=== PATIENT | female | born 1995 | race African-American/Black ===

== ENCOUNTER 2023-09-12 08:00 | Outpatient (CLI) | payer OTHER ==
[2023-09-12 17:25] LABS: BILIRUBIN,URINE NEGATIVE (NEGATIVE); GLUCOSE, URINE (UA) NEGATIVE (NEGATIVE); KETONES,URINE (UA) NEGATIVE (NEGATIVE); LEUKOCYTE ESTERASE, URINE NEGATIVE (NEGATIVE); NITRITE,URINE NEGATIVE (NEGATIVE); OCCULT BLOOD,URINE NEGATIVE (NEGATIVE); PROTEIN,URINE NEGATIVE (NEGATIVE); UROBILINOGEN,URINE 0.2 (NORMAL) E.U./dL (NORMAL)
[2023-09-12 17:37] LABS: AMORPHOUS SEDIMENT,UR Few /LPF; BACTERIA,URINE None Seen /HPF (None Seen); CLARITY,URINE HAZY (CLEAR); RBC,URINE None Seen /HPF (0-5); SQUAMOUS EPITHELIAL CELL,UR RARE Squamous (<= Few); WBC,URINE 0-3 /HPF (0-5)
== END 2023-09-12 23:59 | disposition home or self-care (01) ==
LOC: LAB.WC 08:00
PROVIDERS: ATTEND Obstetrics & Gynecology
DX: Z34.90 Encounter for supervision of normal pregnancy, unspecified, unspecified trimester (principal)
CPT/HCPCS: 81001; 87086

== ENCOUNTER 2023-09-21 11:17 | Outpatient (CLI) | payer OTHER ==
[2023-09-21 12:24] LABS: BASOPHILS % (AUTO) 0.5 %; EOSINOPHILS # (AUTO) 0.1 10^3/uL (0.0-0.7); HCT - HEMATOCRIT 38.4 % (37.0-47.0); HGB - HEMOGLOBIN 11.6 g/dL (12.0-16.0); LYMPHOCYTES # (AUTO) 1.4 10^3/uL (1.5-3.5); LYMPHOCYTES % (AUTO) 22.7 %; MEAN CORPUSCULAR HEMOGLOBIN 21.4 pg (27.0-31.0); MEAN CORPUSCULAR HGB CONC 30.2 g/dL (32.0-36.0); MEAN CORPUSCULAR VOLUME 70.8 fL (81.0-99.0); MEAN PLATELET VOLUME 11.3 fL (7.9-10.8); MONOCYTES # (AUTO) 0.4 10^3/uL (0.0-1.0); MONOCYTES % (AUTO) 6.7 %; NEUTROPHILS # (AUTO) 4.3 10^3/uL (1.5-6.6); NEUTROPHILS % (AUTO) 68.9 %; PLT - PLATELET COUNT 163 10^3/uL (130-450); RED BLOOD COUNT 5.42 10^6/uL (4.20-5.40); RED CELL DISTRIBUTION WIDTH 15.2 % (12.0-15.0); WHITE BLOOD COUNT 6.2 x10^3/uL (4.8-10.8)
[2023-09-21 13:05] LABS: THYROID STIMULATING HORMONE 1.15 uIU/mL (0.34-5.60)
[2023-09-21 15:09] LABS: ESTIMATED AVERAGE GLUCOSE 100 mg/dL (70-100); HEMOGLOBIN A1c% 5.1 % (4.27-6.07)
--- NOTE | 2023-09-21 17:27 | Ultrasound Report ---
PROCEDURE: OB 1st Trimester w/TV INDICATIONS: POSITIVE TEST OUTSIDE/PRIOR DATING DATA: Last menstrual period (LMP): 07/05/2023. LMP-based estimated date of delivery (NANCY): 05-02. First dating scan (date and location): 09/21/2023. Estimated date of delivery (NANCY) from first dating scan: 05/02/2024. TECHNIQUE: Real-time scanning was performed of the fetus and maternal pelvic organs, with image documentation. Endovaginal scanning was also performed to better visualize the fetus and maternal ovaries. COMPARISON: None. FINDINGS: Intrauterine gestational sac present. Embryo: [place]-rump length measures 1.6 cm corresponding to 8 weeks 0 days Heart rate: 176 bpm. Other: No perigestational fluid collection. Measurement variability in dating: +/- 4 weeks by LMP, +/- 7 days by mean sac diameter (use before 6 weeks gestation if crown-rump length not able to be measured), +/- 5 days by crown-rump length (6-12 weeks gestation). Maternal organs: Ovaries demonstrate a left corpus luteal cyst. IMPRESSION: Single live intrauterine with gestational age today of 8 weeks 0 days. Recommend follow-up imaging at 20-22 weeks for dates and anatomy. Reviewed by: Marcia Greenwood MD on 09/21/2023 5:26 PM PDT Approved by: Marcia Greenwood MD on 09/21/2023 5:26 PM PDT Station ID: [id number]
[2023-09-22 15:08] LABS: VARICELLA-ZOSTER AB IGG 359 index (Immune >165)
[2023-09-22 23:08] LABS: HBsAG SCREEN Negative (Negative); HIV SCREEN 4TH GENERATION Non Reactive (Non Reactive)
[2023-09-23 06:11] LABS: RPR Non Reactive (Non Reactive)
[2023-09-24 00:07] LABS: HCV AB Non Reactive (Non Reactive)
== END 2023-09-21 11:18 | disposition home or self-care (01) ==
LOC: DI 11:17
PROVIDERS: ATTEND Obstetrics & Gynecology
DX: O99.211 Obesity complicating pregnancy, first trimester (principal); O99.891 Other specified diseases and conditions complicating pregnancy; R71.8 Other abnormality of red blood cells; Z3A.08 8 weeks gestation of pregnancy
CPT/HCPCS: 36415; 82728; 83036; 84443; 85025; 86592; 86762; 86787; 86803; 86850; 86900; 86901; 87340; 87389

== ENCOUNTER 2023-09-22 11:09 | Outpatient (CLI) | payer OTHER | END 2023-09-22 11:10 | disposition home or self-care (01) | LOC: LAB 11:09 | PROVIDERS: ATTEND Obstetrics & Gynecology | DX: O99.891 Other specified diseases and conditions complicating pregnancy (principal); R71.8 Other abnormality of red blood cells; Z3A.00 Weeks of gestation of pregnancy not specified | CPT/HCPCS: 81599 ==

== ENCOUNTER 2023-10-16 08:00 | Outpatient (CLI) | payer OTHER ==
[2023-10-16 20:24] LABS: CHLAMYDIA TRACHOMATIS DNA NEGATIVE (NEGATIVE); NEISSERIA GONORRHOEAE DNA NEGATIVE (NEGATIVE); TRICHOMONAS VAGINALIS DNA NEGATIVE (NEGATIVE)
== END 2023-10-16 23:59 | disposition home or self-care (01) ==
LOC: LAB.WC 08:00
PROVIDERS: ATTEND Obstetrics & Gynecology
DX: Z11.3 Encounter for screening for infections with a predominantly sexual mode of transmission (principal)
CPT/HCPCS: 87491; 87591; 87661

== ENCOUNTER 2023-10-22 15:13 | Outpatient (CLI) | payer OTHER | END 2023-10-22 15:14 | disposition home or self-care (01) | LOC: LAB 15:13 | PROVIDERS: ATTEND Obstetrics & Gynecology | DX: Z36.89 Encounter for other specified antenatal screening (principal) | CPT/HCPCS: 36415 ==

== ENCOUNTER 2023-11-24 11:25 | Outpatient (CLI) | payer OTHER | END 2023-11-24 11:26 | disposition home or self-care (01) | LOC: LAB 11:25 | PROVIDERS: ATTEND Nurse Practitioner | DX: Z36.89 Encounter for other specified antenatal screening (principal) | CPT/HCPCS: 36415; 82105 ==

== ENCOUNTER 2023-12-22 19:48 | Outpatient (CLI) | payer OTHER ==
--- NOTE | 2023-12-23 14:31 | Ultrasound Report ---
PROCEDURE: OB Anatomy Scan INDICATIONS: SUPERVISION IF OUTSIDE/PRIOR DATING DATA: Last menstrual period (LMP): 07/05/2023. LMP-based estimated date of delivery (NANCY): 04/10/2024. First dating scan (date and location): 09/21/2023. Estimated date of delivery (NANCY) from first dating scan: 05/02/2024. The below data below was generated using the ultrasound NANCY of 05/02/2024 TECHNIQUE: Real-time scanning was performed of the fetus, with image documentation and biometric measurements. Endovaginal scanning: Not performed. COMPARISON: None. FINDINGS: General: A single living intrauterine gestation is present. Presentation: Vertex Placenta: Placental position is posterior, without previa. Amniotic fluid index: 11.4 cm, within normal limits for gestational age. heart rate: 137 beats per minute. Maternal cervical canal: 5.4 cm long; normal length is 2.5 cm or more. biometrics: Biparietal diameter: 5.0 cm, 21 weeks 1 day, 48th percentile Head circumference: 19.27 cm, 21 weeks 4 days, 57th percentile Abdominal circumference: 15.3 cm, 20 weeks 4 days, 23rd percentile Femur length: 3.42 cm, 20 weeks 5 days, 28th percentile Estimated gestational age from initial scan: 21 weeks 1 day Composite gestational age from present scan: 21 weeks 1 day Estimated weight and percentile: 372.7 g, 24th percentile Measurement variability in biometric dating: +/- 10 days from 12-20 weeks gestation, +/- 2 weeks from 20-30 weeks gestation, +/- 3 weeks at 30 weeks gestation or later. Anatomic survey: Neuro: Ventricles are normal at less than 10 mm. Cisterna magna is normal at 3-11 mm. Cerebellum i s normal in size and morphology. Nuchal skin fold: Normal at less than 6 mm between 14 and 20 weeks gestational age. Face: Nose and lips, facial profile are normal. Spine: No evidence for spina bifida. Heart: 4-chambered heart is present, with normal ventricular outflow tracts. Diaphragm: Diaphragm is intact. Stomach: Left-sided stomach is present. Kidneys: No hydronephrosis. Normal is less than 5 mm in 2nd trimester, less than 7 mm in 3rd trimester. Cord: 3 vessel cord has orthotopic insertion. Bladder: Normal in size. Extremities: All 4 extremities are visualized. IMPRESSION: Single living intrauterine at 21 weeks 1 day, NANCY of 05/02/2024. Normal anatomy survey. Estimated weight of 372.7 g, 24th percentile. Reviewed by: Dawson Evans MD on 12/23/2023 1:29 PM JUSTIN Approved by: Dawson Evans MD on 12/23/2023 1:29 PM JUSTIN Station ID: [id number]
== END 2023-12-22 19:49 | disposition home or self-care (01) ==
LOC: DI 19:48
PROVIDERS: ATTEND Obstetrics & Gynecology
DX: Z34.92 Encounter for supervision of normal pregnancy, unspecified, second trimester (principal)

== ENCOUNTER 2024-02-25 11:45 | Outpatient (CLI) | payer OTHER ==
[2024-02-25 13:09] LABS: HCT - HEMATOCRIT 36.5 % (37.0-47.0); HGB - HEMOGLOBIN 11.2 g/dL (12.0-16.0); MEAN CORPUSCULAR HEMOGLOBIN 22.2 pg (27.0-31.0); MEAN CORPUSCULAR HGB CONC 30.7 g/dL (32.0-36.0); MEAN CORPUSCULAR VOLUME 72.3 fL (81.0-99.0); MEAN PLATELET VOLUME 11.6 fL (7.9-10.8); RED BLOOD COUNT 5.05 10^6/uL (4.20-5.40); WHITE BLOOD COUNT 7.5 x10^3/uL (4.8-10.8)
[2024-02-25 13:25] LABS: ALBUMIN 3.6 g/dL (3.2-5.5); ALBUMIN/GLOBULIN RATIO 1.2 (1.0-2.2); BILIRUBIN,TOTAL 0.4 mg/dL (0.2-1.0); CREATININE 0.6 mg/dL (0.6-1.3); POTASSIUM 3.4 mmol/L (3.5-4.5); TOTAL PROTEIN 6.5 g/dL (6.4-8.9)
[2024-02-25 13:42] LABS: FERRITIN 9.2 ng/mL (11.0-306.8)
[2024-02-26 08:12] LABS: RPR Non Reactive (Non Reactive)
== END 2024-02-25 11:46 | disposition home or self-care (01) ==
LOC: LAB 11:45
PROVIDERS: ATTEND Obstetrics & Gynecology
DX: O99.210 Obesity complicating pregnancy, unspecified trimester (principal); O99.891 Other specified diseases and conditions complicating pregnancy; R71.8 Other abnormality of red blood cells
CPT/HCPCS: 36415; 80053; 82728; 82950; 85027; 86592

== ENCOUNTER 2024-05-03 04:45 | Inpatient (IN) ==
[2024-05-03] MEDS ORDERED: ACETAMINOPHEN 500 MG TABLET PO ONE (04:55)
[2024-05-03 05:29] LABS: BASOPHILS % (AUTO) 0.4 %; EOSINOPHILS # (AUTO) 0.1 10^3/uL (0.0-0.7); EOSINOPHILS % (AUTO) 1.2 %; HCT - HEMATOCRIT 40.9 % (37.0-47.0); HGB - HEMOGLOBIN 12.7 g/dL (12.0-16.0); LYMPHOCYTES # (AUTO) 1.6 10^3/uL (1.5-3.5); MEAN CORPUSCULAR HGB CONC 31.1 g/dL (32.0-36.0); MEAN CORPUSCULAR VOLUME 70.8 fL (81.0-99.0); MONOCYTES # (AUTO) 0.6 10^3/uL (0.0-1.0); MONOCYTES % (AUTO) 8.4 %; NEUTROPHILS % (AUTO) 67.5 %; PLT - PLATELET COUNT 142 10^3/uL (130-450); RED BLOOD COUNT 5.78 10^6/uL (4.20-5.40); RED CELL DISTRIBUTION WIDTH 14.8 % (12.0-15.0); WHITE BLOOD COUNT 7.5 x10^3/uL (4.8-10.8)
--- NOTE | 2024-05-03 07:13 | HISTORY & PHYSICAL EXAMINATION ---
Admit History Smoking Status: Never smoker Other Maternal History Other Maternal History: Patient is a 29-year-old at 40 weeks 1 day gestation presenting today for planned delivery for breech presentation. She had two attempts at external cephalic versions, but were unsuccessful. She has good movement, but has not noticed large movements. She is gina every several minutes. No leaking bleading, headache, visual changes, RUQ pain. LMP: 07/05/2023 NANCY by LMP: 04/10/2024 Initial US Date 09/21/2023, US Age 8 weeks 0 days, NANCY by ultrasound: 05/02/2024 Final NANCY: 05/02/2024 by 8wk US It's a GIRL!!! 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 Partner in [place], [place] moving here January or Feb. No other family here. they are in [place]. Partner now here at Mar 19 visit! Baby aspirin recommended. and recommended again 12/16, prescribed. explained again it is important. 01/08 again encouraged. info from August given. 04/16- not taking aspirin. did not discuss further. -djl Pre- Weight:186.2 BMI: 30.16 Blood type: O+ Antibody: negative CBC: PLT 163 HCT 38.4 HGB 11.6 MCV 70 ferritin 13, hemoglobin elec neg. recommended iron, started after her trip 12/2023 RUB: immune VZV: immune HBsAg: negative HepC: N-R RPR/AB-EIA: N-R HIV: N-R PAP: 10/16/23 Normal GC/CT: 10/15 Negative HSV:denies in self and partner Genetic testing: [id number] Negative; SMA/CF Negative; AFP: Negative Covid: Pfizer x2 plus sick Flu: vaccinated at work ([employer]) RSV: 04/09 given. FAS: Placenta:Posterior Cord:3VC AGATHA:11.4cm EFW: 372.7g 24th%ile 50gm OGCT: 97 TDAP: got at work ([employer]) Breast Pump: Rx gov 3rd trimester H/H 11.2/36.5 PLT 185, MCV 72 3rd trimester HIV GBS: 04/09- Negative HPI Current : Current EDU 05/02/24 Gestation 40 Weeks and 1 Days Para 0 Vital Signs Temperature 36.8 C 05/03/24 05:02 Pulse Rate 90 05/03/24 05:02 Respiratory Rate 16 05/03/24 05:02 Blood Pressure 131/84 H 05/03/24 05:02 Temperature 36.8 C 05/03/24 05:02 Pulse Rate 90 05/03/24 05:02 Respiratory Rate 16 05/03/24 05:02 Blood Pressure 131/84 H 05/03/24 05:02 NST Procedure NST Procedure: NST Procedure Start Date 05/03/24 Start Time 15:00 Stop Time 05:40 Vibroacoustic Stimulation Used No Patient States Movement Yes Meds/Allgy Home Medications Ambulatory Orders Medication Instructions Recorded Confirmed ferrous sulfate 325 mg (65 mg 325 mg PO QDAY 03/19/24 04/29/24 iron) tablet vitamin#30 30 mg iron-10 1 cap PO DAILY 03/19/24 04/29/24 mg iron-folic acid 1 mg-omg3 capsule Allergies Allergies Allergy/AdvReac Type Severity Reaction Status Date / Time No Known Drug Allergies Allergy Verified 03/19/24 10:24 [facility] Medical History Medical History (Updated 05/03/24 @ 07:17 by Jairo Schilling MD) 39 weeks gestation of Social History Social History (Updated 03/19/24 @ 10:32 by Jennyfer Mckeon MA) Smoking Status: Never smoker Do you dip or chew tobacco?: No ETOH Use: None Substance Use: denies use Physical Abdominal Exam Vital Signs: Temp Pulse Resp BP 36.8 C 90 16 131/84 H 05/03/24 05:02 05/03/24 05:02 05/03/24 05:02 05/03/24 05:02 Contraction Frequency (min/apart): 4-7 Contraction Intensity: positive Mild to moderate Uterine Resting Tone: positive Soft Monitoring Heart Rate Baseline: 130, moderate variability, accelerations present, no decelerations Strip Review: positive Category I Presentation Presentation: positive Breech Vaginal Exam Membranes: positive Membranes intact Speculum Exam Findings: positive Gross leak Other Notes Labor Progress Note/Additional Text: Physical Exam General: Alert, oriented, no acute distress Head: Normal cephalic atraumatic Eyes: PERRLA, extraocular motions intact. Respiratory: Normal rate of respiration. No accessory muscle use, normal respiratory effort. Cardiovascular: Regular rate and rhythm Abdomen: Gravid, nontender, nondistended Extremities: Normal range of motion Neuro: Oriented x3. Normal movements Psych: Appropriate mood and affect. Normal judgment and insight Plan for Labor Plan For Labor I expect patient to be DC'd or transferred within 96 hours.: Yes Conclusion/Plan Problem List (1) 40 weeks gestation of : Plan: - section was recommended. Risks, benefits and alternatives were discussed including but not limited to infection, bleeding that may require blood products or hysterectomy for life saving measures, injury to surrounding organs including but not limited to bowel, bladder, ureters, tubes and ovaries and/or the baby. Should injury occur it could require longer/additional surgery to repair. The patient stated understanding and desired to proceed. All questions were answered posed by patient. -2 grams cefazolin, preop labs, anesthesia consult. (2) Breech presentation: Plan: As above Qualifiers: Fetus number: single or unspecified fetus Qualified Code(s): O32.1XX0 - Maternal care for breech presentation, not applicable or unspecified (3) Supervision of normal first : Plan: As above Lab Results 05/03/24 05:17
[2024-05-03] MEDS ORDERED: ATROPINE ABBOJECT 1 MG/10 ML SYRINGE IVP PRN (07:23)
[2024-05-03] MEDS ORDERED: fentaNYL 100 MCG/2 ML VIAL IVP PRN (07:23)
[2024-05-03] MEDS ORDERED: MORPHINE 2 MG/ML CARPUJECT IVP PRN (07:23)
[2024-05-03] MEDS ORDERED: NALOXONE 0.4 MG/ML VIAL IVP PRN (07:23)
[2024-05-03] MEDS ORDERED: HYDROmorphone 0.5 MG/0.5 ML SYRINGE IVP PRN (07:23)
[2024-05-03] MEDS ORDERED: ePHEDrine 50 MG/ML VIAL IVP PRN (07:23)
[2024-05-03] MEDS ORDERED: METOCLOPRAMIDE 10 MG/2 ML VIAL IVP PRN (07:23)
[2024-05-03] MEDS ORDERED: ONDANSETRON 4 MG/2 ML VIAL IVP PRN (07:23)
--- NOTE | 2024-05-03 07:23 | ANESTHESIA PROCEDURE NOTE ---
Pre-Anesthesia VS, & Labs Diagnosis Surgical Diagnosis:: breech baby Procedure Procedure: c section Vitals Vital Signs: Temp Pulse Resp BP 36.8 C 90 16 131/84 H 05/03/24 05:02 05/03/24 05:02 05/03/24 05:02 05/03/24 05:02 Height (in): 5 ft 6 in Weight (kg): 92 kg Body Mass Index: 32.7 BMI Classification: Obese NPO NPO: >8 hours Is Patient ?: Yes Lab Results Current Lab Results: Laboratory Tests 05/03/24 05:17: WBC 7.5, RBC 5.78 H, Hgb 12.7, Hct 40.9, MCV 70.8 L, MCH 22.0 L, MCHC 31.1 L, RDW 14.8, Plt Count 142, MPV 12.0 H, Neut # (Auto) 5.0, Lymph # (Auto) 1.6, [place] # (Auto) 0.6, Eos # (Auto) 0.1, Baso # (Auto) 0.0, Absolute Nucleated RBC 0.00, Nucleated RBC % 0.0, Blood Type O POSITIVE, Antibody Screen NEGATIVE Lab results reviewed: Yes 05/03/24 05:17 Meds/Allgy Home Medications Ambulatory Orders Medication Instructions Recorded Confirmed ferrous sulfate 325 mg (65 mg 325 mg PO QDAY 03/19/24 04/29/24 iron) tablet vitamin#30 30 mg iron-10 1 cap PO DAILY 03/19/24 04/29/24 mg iron-folic acid 1 mg-omg3 capsule Allergies Allergies Allergy/AdvReac Type Severity Reaction Status Date / Time No Known Drug Allergies Allergy Verified 03/19/24 10:24 [facility] Medical History Medical History 39 weeks gestation of Social History Social History Smoking Status: Never smoker Do you dip or chew tobacco?: No ETOH Use: None Substance Use: denies use POLST POLST Status: Full Code Anesthesia Exam (Expanded) Exam General: Alert and No acute distress Dental: WNL Mouth Openin Fingerbreadth Neck Mobility: Normal Mallampati classification: II Thyromental Distance: 4-6 cm Respiratory: Lungs clear Cardiovascular: Regular rate Plan Problem List (1) 40 weeks gestation of : Plan: - section was recommended. Risks, benefits and alternatives were discussed including but not limited to infection, bleeding that may require blood products or hysterectomy for life saving measures, injury to surrounding organs including but not limited to bowel, bladder, ureters, tubes and ovaries and/or the baby. Should injury occur it could require longer/additional surgery to repair. The patient stated understanding and desired to proceed. All questions were answered posed by patient. -2 grams cefazolin, preop labs, anesthesia consult. (2) Breech presentation: Plan: As above Qualifiers: Fetus number: single or unspecified fetus Qualified Code(s): O32.1XX0 - Maternal care for breech presentation, not applicable or unspecified (3) Supervision of normal first : Plan: As above Plan Anesthesia Type: Spinal and Transverse Abdominis Plane (TAP) Block Consent for Procedure(s) Verified and Reviewed: Yes Code Status: Attempt Resuscitation ASA Classification ASA classification: 2-Mild systemic disease Is this case an emergency?: No
[2024-05-03] MEDS ORDERED: PHENYLEPHRINE 10 MG/ML VIAL ONE (07:26)
[2024-05-03] MEDS ORDERED: ePHEDrine 50 MG/ML VIAL IVP ONE (07:42)
[2024-05-03] MEDS ORDERED: ceFAZolin 1 GM VIAL ONE (07:44)
[2024-05-03] MEDS ORDERED: ACETAMINOPHEN 1,000 MG/100 ML 1,000 MG/100 ML BAG IV ONE (07:46)
[2024-05-03] MEDS ORDERED: OXYTOCIN 10 UNIT/ML VIAL ONE (07:46)
[2024-05-03] MEDS: CITRIC ACID/SODIUM CITRATE 15 ML UDC PO ONE (07:51)
[2024-05-03] MEDS ORDERED: LACTATED RINGERS 1,000 ML IV SCH ×2 (08:00→10:00)
[2024-05-03] MEDS: ceFAZolin 2 GM in SODIUM CHLORIDE 0.9% 100ML 100 ML IV STA (08:15)
[2024-05-03] MEDS ORDERED: ONDANSETRON 4 MG/2 ML VIAL ONE (08:16)
[2024-05-03] MEDS ORDERED: SODIUM CHLORIDE 0.9% 10 ML VIAL IVP ONE (08:54)
[2024-05-03] MEDS ORDERED: OXYTOCIN/SODIUM CHLORIDE 500 ML IV ONE (08:54)
[2024-05-03] MEDS ORDERED: PROPOFOL 200 MG/20 ML VIAL IVP ONE (08:59)
[2024-05-03] MEDS ORDERED: KETOROLAC 30 MG/ML VIAL ONE (09:03)
[2024-05-03] MEDS ORDERED: ONDANSETRON ODT 4 MG TABLET TL PRN (09:12)
[2024-05-03] MEDS ORDERED: OXYTOCIN/SODIUM CHLORIDE 500 ML IV PRN (09:12)
--- NOTE | 2024-05-03 09:14 | OPERATIVE REPORT ---
Operative Report General Admit Date: 05/03/24 Procedure Data: Operation Date: 05/03/24 07:30 Proposed Procedures p Section(Not Applicable) - Jairo Schilling MD Pre-Op Diagnosis: Breech Delivery Anesthesia Type Spinal Case Staff Anesthesia Provider: Roni Lara Case Times Procedure Start: 05/03/24 08:30 Time out: 05/03/24 08:27 Pre-Op Diagnosis: Breech presentation Post Op Diagnosis: Status post primary low transverse cesaean section Procedure Note Intake, IV Amount (ml): 600 Estimated Blood Loss (ml): 600 Output, Urine Amount (ml): 75 Findings: Mildly enlarged ovaries, possibly polycystic. Normal appearing uterus and tubes. Complications: None Other Other Information/Narrative: Patient presented at 40 weeks 1 day gestation for planned section. She had 2 previous attempts at external cephalic version that were unsuccessful, but declined section at 39 weeks. Ultrasound confirmed on admission as well as immediately prior to procedure to confirm breech presentation. She did start gina this morning, but not in active labor. section was recommended. Risks, benefits and alternatives were discussed including but not limited to infection, bleeding that may require blood products or hysterectomy for life saving measures, injury to surrounding organs including but not limited to bowel, bladder, ureters, tubes and ovaries and/or the baby. Should injury occur it could require longer/additional surgery to repair. The patient stated understanding and desired to proceed. All questions were answered posed by patient. Prior to being taken to the OR, 2 grams of cefazolin IV was administered. The patient was taken to the operating room where regional anesthesia was found to be adequate. She was then prepared and draped in the usual sterile fashion in the dorsal supine position with a leftward tilt displacing the uterus. Valenzuela was draining to gravity. SCDs were on bilateral lower extremities. Time out was taken. A pfannenstiel skin incision was then made with the scalpel and carried through to the underlying layer of fascia. The fascia was incised in the midline and the incision extended laterally with the Frias scissors. The superior aspect of the facial incision was then grasped with the Chuy clamps, elevated and the underlying rectus muscles dissected off sharply. Attention was then turned to the inferior aspect of this incision which in a similar fashion was grasped, elevated with the Chuy clamps and the rectus muscle dissected off sharply. The rectus muscles were in the midline. The peritoneum identified, grasped with the pick-ups and entered sharply with the Metzenbaum scissors. The peritoneal incision was then extended superiorly and inferiorly with good visualization of the bladder. The bladder blade was inserted. The vesicouterine peritoneum was identified, grasped with the pick-ups, and entered sharply with Metzenbaum scissors. This incision was then extended laterally and the bladder flap created digitally. The bladder blade was reinserted. The lower uterine segment was identified and incised in a transverse fashion with the scalpel. The uterine incision was then extended bluntly laterally. Artificial rupture membranes showed minimal clear fluid. The bladder blade was removed. The fetus was in a cephalic presentation. The infants head delivered atraumatically. The anterior shoulders were delivered followed by the posterior shoulders then the remainder of the body. The infants mouth and nose were bulb suctioned. The umbilical cord was clamped times two and cut. The infant was handed to the pediatric team. The placenta was removed with gentle traction. Oxytocin was added to the IV fluid and was allowed to run freely. The uterus was exteriorized and cleared of all clots and debris. The uterine incision was inspected and found to be without any extensions and was repaired with 0 Vicryl in a running, locked fashion. A second imbricating layer was performed. She did require 3 digital figure-of- eight sutures to make the hysterotomy hemostatic and 1 small hematoma at the left corner. There was a small amount of oozing from the bladder flap so Surgicel was placed over the area. Upon inspection, the repaired hysterotomy was found to be hemostatic. The uterus was firm and returned to the abdomen. The gutters were cleared of all clots and debris. The muscle layer was examined and found to be hemostatic. The fascia was reapproximated with 0 Vicryl in a running fashion. The subcutaneous tissue was closed with 2-0 Vicryl. The skin was closed in a subcuticular fashion with 4-0 Monocryl. The patient tolerated the procedure well. Sponge, lap and needle counts were correct times three. The patient was taken to the recovery room in stable condition. I appreciate the assistance of WOJCIECH Narvaez during this procedure, and the assistance in retraction, visualization, dissection, and overall assistance during the case were instrumental to the patient's wellbeing. APGARs: 8/8 weight: Pending
[2024-05-03] MEDS: oxyCODONE 5 MG TABLET PO PRN (10:50)
--- NOTE | 2024-05-03 11:48 | OPERATIVE REPORT ---
Operative Report General Admit Date: 05/03/24 Procedure Data: Operation Date: 05/03/24 07:30 Proposed Procedures p Section(Not Applicable) - Jairo Schilling MD Actual Procedures p Section(Not Applicable) - Jairo Schilling MD Pre-Op Diagnosis: Breech Presentation Pre-Op Diagnosis: Breech Presentation 40 weeks gestation Anesthesia Type Spinal Case Staff Anesthesia Provider: Roni Lara Assisting Provider: Sugey Carmona Case Times Into Recovery: 05/03/24 09:42 Procedure Start: 05/03/24 08:30 Procedure End: 05/03/24 09:18 Time out: 05/03/24 08:27 Pre-Op Diagnosis: Breech presentation Post Op Diagnosis: Status post primary low transverse cesaean section Procedure Note Intake, IV Amount (ml): 600 Estimated Blood Loss (ml): 600 Output, Urine Amount (ml): 75 Findings: Mildly enlarged ovaries, possibly polycystic. Normal appearing uterus and tubes. Nuchal cord. Minimal clear amniotic fluid. Complications: None Other Other Information/Narrative: Patient presented at 40 weeks 1 day gestation for planned section. She had 2 previous attempts at external cephalic version that were unsuccessful, but declined section at 39 weeks. Ultrasound confirmed on admission as well as immediately prior to procedure to confirm breech presentation. She did start gina this morning, but not in active labor. section was recommended. Risks, benefits and alternatives were discussed including but not limited to infection, bleeding that may require blood products or hysterectomy for life saving measures, injury to surrounding organs including but not limited to bowel, bladder, ureters, tubes and ovaries and/or the baby. Should injury occur it could require longer/additional surgery to repair. The patient stated understanding and desired to proceed. All questions were answered posed by patient. Prior to being taken to the OR, 2 grams of cefazolin IV was administered. The patient was taken to the operating room where regional anesthesia was found to be adequate. She was then prepared and draped in the usual sterile fashion in the dorsal supine position with a leftward tilt displacing the uterus. Valenzuela was draining to gravity. SCDs were on bilateral lower extremities. Time out was taken. A pfannenstiel skin incision was then made with the scalpel and carried through to the underlying layer of fascia. The fascia was incised in the midline and the incision extended laterally with the Frias scissors. The superior aspect of the facial incision was then grasped with the Chuy clamps, elevated and the underlying rectus muscles dissected off sharply. Attention was then turned to the inferior aspect of this incision which in a similar fashion was grasped, elevated with the Chuy clamps and the rectus muscle dissected off sharply. The rectus muscles were in the midline. The peritoneum identified, grasped with the pick-ups and entered sharply with the Metzenbaum scissors. The peritoneal incision was then extended superiorly and inferiorly with good visualization of the bladder. The bladder blade was inserted. The vesicouterine peritoneum was identified, grasped with the pick-ups, and entered sharply with Metzenbaum scissors. This incision was then extended laterally and the bladder flap created digitally. The bladder blade was reinserted. The lower uterine segment was identified and incised in a transverse fashion with the scalpel. The uterine incision was then extended bluntly laterally. Artificial rupture membranes showed minimal clear fluid. The bladder blade was removed. The fetus was in breech presentation and the buttocks was delivered. With gentle fundal pressure, the sacrum delivered and the legs were delivered by flexing the knee and extending through the hysterotomy. The fetus was covered with a warm, wet towel. The fetus was then delivered to the scapula then rotated with the anterior, right shoulder and the arm was medially rotated, flexed, and extended through the hysterotomy. The fetus was then rotated to the left side and similar procedure was performed. The head was then delivered with gentle fundal pressure and delivered with a nuchal cord which was then reduced. The placenta was removed with gentle traction. Oxytocin was added to the IV fluid and was allowed to run freely. The uterus was exteriorized and cleared of all clots and debris. The uterine incision was inspected and found to be without any extensions and was repaired with 0 Vicryl in a running, locked fashion. A second imbricating layer was performed. She did require 3 digital [id number] sutures to make the hysterotomy hemostatic and 1 small hematoma at the left corner. There was a small amount of oozing from the bladder flap so Surgicel was placed over the area. Upon inspection, the repaired hysterotomy was found to be hemostatic. The uterus was firm and returned to the abdomen. The gutters were cleared of all clots and debris. The muscle layer was examined and found to be hemostatic. The fascia was reapproximated with 0 Vicryl in a running fashion. The subcutaneous tissue was closed with 2-0 Vicryl. The skin was closed in a subcuticular fashion with 4-0 Monocryl. The patient tolerated the procedure well. Sponge, lap and needle counts were correct times three. The patient was taken to the recovery room in stable condi tion. I appreciate the assistance of WOJCIECH Narvaez during this procedure, and the assistance in retraction, visualization, dissection, and overall assistance during the case were instrumental to the patient's wellbeing. APGARs: 8/8 weight: Pending
[2024-05-03] MEDS: ACETAMINOPHEN 500 MG TABLET PO SCH (12:00)
--- NOTE | 2024-05-03 12:21 | PHARMACY PROGRESS NOTE ---
Best Possible Medication History Admit Date and Time: 05/03/24 7595 Home Medications Medication Instructions Recorded Confirmed Type ferrous sulfate 325 mg (65 mg 325 mg PO QDAY 03/19/24 05/03/24 History iron) tablet vitamin#30 30 mg iron-10 1 cap PO DAILY 03/19/24 05/03/24 History mg iron-folic acid 1 mg-omg3 capsule Processed by: Nursing Medications reviewed in ED?: No Medication History completed: Yes Patient Interview: Pt unable to participate (currently occupied, nursing had interviewed) [facility] Statement: As the person ultimately responsible for medication therapy, providers are able to order a medication from an existing home medication list in [facility] via the "Reconcile Routine" prior to Confirmation of that medication by medical support assistant. Such practice is discouraged except when the physician, in their clinical judgment, deems that a medical need exists for a medication without regard to previous use.
[2024-05-03] MEDS: LACTATED RINGERS 1,000 ML IV SCH (12:49)
--- NOTE | 2024-05-03 14:32 | ANESTHESIA POST OP EVALUATION ---
Anesthesia Post Eval Post Anesthesia Eval Vitals: Last Vital Signs Temp 36.9 C 05/03/24 10:04 Pulse 95 H 05/03/24 12:15 Resp 16 05/03/24 12:15 BP 115/65 05/03/24 12:15 Pulse Ox 99 05/03/24 10:52 CV Function Including HR & BP: Stable Pain Control: Satisfactory Nausea & Vomiting: Negative Mental Status: Baseline Respiratory Status: Airway Patent Hydration Status: Satisfactory Anesthesia Complications: None
[2024-05-03] MEDS: KETOROLAC 30 MG/ML VIAL IVP SCH (15:09)
[2024-05-04] MEDS: SIMETHICONE CHEW 80 MG TABLET PO PRN (00:08)
[2024-05-04] MEDS ORDERED: KETOROLAC 30 MG/ML VIAL ONE (08:22)
[2024-05-04] MEDS: DOCUSATE SODIUM 100 MG CAPSULE PO SCH (08:30)
[2024-05-04 08:48] LABS: BASOPHILS % (AUTO) 0.1 %; EOSINOPHILS # (AUTO) 0.1 10^3/uL (0.0-0.7); EOSINOPHILS % (AUTO) 0.7 %; HCT - HEMATOCRIT 35.7 % (37.0-47.0); HGB - HEMOGLOBIN 11.4 g/dL (12.0-16.0); LYMPHOCYTES % (AUTO) 10.6 %; MEAN CORPUSCULAR HEMOGLOBIN 22.4 pg (27.0-31.0); MEAN CORPUSCULAR HGB CONC 31.9 g/dL (32.0-36.0); MEAN CORPUSCULAR VOLUME 70.3 fL (81.0-99.0); MEAN PLATELET VOLUME 11.5 fL (7.9-10.8); MONOCYTES # (AUTO) 0.6 10^3/uL (0.0-1.0); MONOCYTES % (AUTO) 6.4 %; NEUTROPHILS # (AUTO) 7.5 10^3/uL (1.5-6.6); NEUTROPHILS % (AUTO) 81.9 %; PLT - PLATELET COUNT 138 10^3/uL (130-450); RED BLOOD COUNT 5.08 10^6/uL (4.20-5.40); RED CELL DISTRIBUTION WIDTH 14.8 % (12.0-15.0); WHITE BLOOD COUNT 9.1 x10^3/uL (4.8-10.8)
[2024-05-04 11:40] VITALS: O2SAT 98
[2024-05-04] MEDS: KETOROLAC 30 MG/ML VIAL IVP SCH (12:59)
[2024-05-04] MEDS: IBUPROFEN 600 MG TABLET PO SCH (14:28)
--- NOTE | 2024-05-05 13:40 | Labor Flowsheet ---
Labor Flowsheet Datetime Report Generated by CPN: 05/05/2024 13:39 Datetime: 05/03/2024 13:27 VAGINAL EXAM Membranes Ruptured Date/Time: 05/03/2024 08:36
--- NOTE | 2024-05-15 13:42 | Discharge Summary ---
Discharge Summary Admit Date: 05/03/24 Discharge Date: 05/05/24 Discharging Provider: Yin Alvarez MD Code Status: Attempt Resuscitation DIAGNOSES Admission Diagnoses: breech presentation, at 39 weeks gestational age Discharge Diagnoses with Status of Each Condition: breech baby delivered at term by c section. no complications. HPI History of Present Illness: presents for primary scheduled c section for breech at term. HOSPITAL COURSE Hospital Course: c section performed wtihout complications. discharged home on pod #2. ALLERGIES Allergies Allergy/AdvReac Type Severity Reaction Status Date / Time No Known Drug Allergies Allergy Verified 03/19/24 10:24 MEDICATIONS Ambulatory Orders Medication Instructions Recorded Confirmed ferrous sulfate 325 mg (65 mg 325 mg PO QDAY 03/19/24 05/03/24 iron) tablet acetaminophen 500 mg tablet 1,000 mg (2 x 500 mg) PO Q6HR PRN 05/05/24 pain #30 tabs docusate sodium 100 mg capsule 100 mg PO DAILY PRN constipation 05/05/24 #30 caps ibuprofen 600 mg tablet 600 mg PO Q6HR PRN pain #30 tabs 05/05/24 oxycodone 5 mg tablet 5 mg PO Q4HR PRN Moderate Pain 05/05/24 (Level 4-6) #6 tabs vitamin#30 30 mg iron-10 1 cap PO DAILY #90 caps 05/05/24 mg iron-folic acid 1 mg-omg3 capsule PHYSICAL EXAM AT DISCHARGE General Appearance: positive No acute distress Respiratory: positive No respiratory distress Cardiovascular: positive Regular rate & rhythm Abdomen: positive Non-tender and Other (wound healing well. ) LABS 05/04/24 08:38 FOLLOW UP Follow Up: discharge home stable. fu in clinic in 1-2 weeks. TIME SPENT Time Spent in Discharge (Minutes): 15 Discharge Plan Discharge Patient Disposition: NURSING HOME, Self Care Condition: Good Prescriptions: Continued acetaminophen 500 mg tablet 1,000 mg PO Q6HR PRN (Reason: pain) Qty: 30 0RF docusate sodium 100 mg capsule 100 mg PO DAILY PRN (Reason: constipation) Qty: 30 0RF ibuprofen 600 mg tablet 600 mg PO Q6HR PRN (Reason: pain) Qty: 30 0RF oxycodone 5 mg tablet 5 mg PO Q4HR PRN (Reason: Moderate Pain (Level 4-6)) Qty: 6 0RF PNV #[id number] acid-omega3 30 mg iron-10 mg iron-1 mg capsule 1 cap PO DAILY Qty: 90 3RF Rx Instructions: any covered vitamin is fine. ferrous sulfate 325 mg (65 mg iron) tablet 325 mg PO QDAY Discontinued PNV #[id number] acid-omega3 30 mg iron-10 mg iron-1 mg capsule 1 cap PO DAILY Activity Restrictions: Additional Comments Activity Restrictions/Additional Instructions: no lifting more than 15 pounds for 6 weeks. no tub baths for 4 weeks. nothing in vagina for 6 weeks. Diet: Regular Print Language: Swedish Patient Instructions: , C Section Dc Follow-up Care: Jairo Schillign MD [Provider Admit Priv/Credential] - (1 week or so)
== END 2024-05-05 13:00 | disposition home or self-care (01) | DRG 788 ==
LOC: FBP 04:45
PROVIDERS: ADMIT Obstetrics & Gynecology; ATTEND Obstetrics & Gynecology
DX: O99.214 Obesity complicating childbirth; O32.1XX0 Maternal care for breech presentation, not applicable or unspecified; Z37.0 Single live birth; Z3A.40 40 weeks gestation of pregnancy